=== PATIENT | female | born 1970 | race Hispanic/Latino ===

== ENCOUNTER 2018-01-20 08:37 | Emergency (ER) | payer SELFPAY | END 2018-01-20 09:33 | disposition home or self-care (01) | LOC: SCSER 08:37 | DX: J02.9 Acute pharyngitis, unspecified (principal) | CPT/HCPCS: 87081; 87430; 99283 ==

== ENCOUNTER 2020-01-22 13:33 | Outpatient (CLI) | payer OTHER ==
--- NOTE | 2020-01-22 14:37 | MMO ---
Right Breast MAMMO Unilat Diag DDI RT+ANN. CLINICAL HISTORY: Patient is 49 years old and is seen for additional evaluation requested at current screening. The patient has the following family history of breast cancer: maternal aunt, at age 60. The patient has no personal history of cancer. VIEWS: The views performed were: right craniocaudal spot compression with tomosynthesis; right mediolateral oblique spot compression with tomosynthesis; and right mediolateral with tomosynthesis. FILMS COMPARED: The present examination has been compared to prior imaging studies performed at [facility] on 01/07/2020, at [facility] on 01/25/2019, and at [facility] on 01/13/2018 and 01/22/2020. This study has been interpreted with the assistance of computer-aided detection. MAMMOGRAM FINDINGS: There are scattered fibroglandular densities. There is a new irregular mass measuring 13 x 14 x 16 mm with spiculated margins seen in the middle lower-outer region of the right breast. Spiculated solid mass on ultrasound. IMPRESSION: NEW MASS IN THE RIGHT BREAST IS SUSPICIOUS. AN ULTRASOUND-GUIDED BREAST BIOPSY IS RECOMMENDED. THE RESULTS OF THIS EXAM WERE SENT TO THE PATIENT. ACR BI-RADS Category 4 - Suspicious abnormality - biopsy should be considered MAMMOGRAPHY NOTE: 1. A negative mammogram report should not delay a biopsy if a dominant of clinically suspicious mass is present. 2. Approximately 10% to 15% of breast cancers are not detected by mammography. 3. Adenosis and dense breasts may obscure an underlying neoplasm. Reported by: PIHL ESTES MD Electonically Signed: [id number]
--- NOTE | 2020-01-22 15:27 | ULT ---
RIGHT BREAST ULTRASOUND: HISTORY: Followup to abnormal mammogram. FINDINGS: The right breast is evaluated at approximately the 6:30 o'clock position 2 cm from the nipple where t here is a somewhat spiculated-appearing solid mass which has a very suggestive appearance of malignan cy. This mass measures 0.8 x 1.3 x 1.1 cm. In addition, in the right axilla there is a lymph node w hich measures 0.9 x 2.5 x 1.6 cm which has a somewhat thickened cortex focally and thus is a somewhat suspicious appearance. This should probably be biopsied at the same time that the breast mass is bi opsied. IMPRESSION: 1. Somewhat spiculated-appearing solid mass very suspicious for malignancy. 2. Somewhat enlarged right axillary lymph node with some thickening focally of the cortex which also has a somewhat suspicious appearance. Ultrasound-guided biopsy of this right breast mass and consid eration for biopsy of this right axillary lymph node is suggested for further evaluation. This was discussed with the patient with Latrice who has scheduled a biopsy to be performed. Dr. Edie yusuf's office will be notified. CODE CR
== END 2020-01-22 13:34 | disposition home or self-care (01) ==
LOC: BICMAMMO 13:33
PROVIDERS: ATTEND Family Medicine
DX: N63.13 Unspecified lump in the right breast, lower outer quadrant (principal)
CPT/HCPCS: G0279

== ENCOUNTER → 2020-01-29 | Day surgery (SDC) | payer OTHER ==
--- NOTE | 2020-01-29 14:49 | MMO ---
Right Breast MAMMO Unilat Diag DDI RT. CLINICAL HISTORY: Patient is 49 years old and is seen for breast biopsy. The patient has the following family history of breast cancer: maternal aunt, at age 60. The patient has no personal history of cancer. The patient has a history of right Ultrasound Guided Core Biopsy in January,. VIEWS: The views performed were: right craniocaudal; right mediolateral oblique; and right exaggerated craniocaudal. FILMS COMPARED: The present examination has been compared to prior imaging studies performed at [facility] on 01/07/2020, at [facility] on 01/25/2019, and at [facility] on 01/22/2020. This study has been interpreted with the assistance of computer-aided detection. MAMMOGRAM FINDINGS: There are scattered fibroglandular densities. There is an irregular mass with associated biopsy clip seen in the right breast at 6 o'clock. IMPRESSION: MASS IN THE RIGHT BREAST IS SUSPICIOUS. BIOPSY IS RECOMMENDED. BIOPSY OF THIS LESION HAS BEEN PERFORMED AND PATHOLOGY IS PENDING. THE RESULTS OF THIS EXAM WERE SENT TO THE PATIENT. ACR BI-RADS Category 4 - Suspicious abnormality - biopsy should be considered MAMMOGRAPHY NOTE: 1. A negative mammogram report should not delay a biopsy if a dominant of clinically suspicious mass is present. 2. Approximately 10% to 15% of breast cancers are not detected by mammography. 3. Adenosis and dense breasts may obscure an underlying neoplasm. Reported by: RG MUÑOZ MD Electonically Signed: [id number]
--- NOTE | 2020-01-29 15:40 | ULT ---
ULTRASOUND GUIDED CORE BIOPSY OF RIGHT BREAST MASS: 01/29/20 HISTORY: Suspicious mass within the right breast at the 6:30 position. TECHNIQUE/FINDINGS: Informed consent obtained prior to the procedure. Preprocedural imaging reidentifies an angulated hyp oechoic solid mass at the 6:30 position of the right breast measuring up to approximately 1.2 cm. Skin overlying this lesion was prepped and draped in the normal sterile fashion and anesthetized with 1% buffered lidocaine. With direct sonographic guidance, four 14 gauge core biopsies were obtained of the mass. The obtained material was sent to the pathologist for evaluation. Postprocedural post biopsy clip was placed and proper location confirmed with postprocedural mammography. Patient tolerated the procedure well. IMPRESSION: Successful ultrasound guided core biopsy of right breast mass at the 6:30 position. POS: LIBAN
--- NOTE | 2020-01-29 15:50 | ULT ---
RIGHT AXILLARY LYMPH NODE BIOPSY WITH ULTRASOUND GUIDANCE: DATE: 01/29/2020. HISTORY: A 49-year-old female with a suspicious mass lesion within the right breast at the 6:30 position as we ll as a suspicious lymph node within the right axilla with a thickened cortex. FINDINGS: Informed consent for needle biopsy obtained prior to the procedure. The skin overlying the enlarged axillary node prepped and draped in normal sterile fashion. The skin was anesthetized with 1% buffered Lidocaine. With direct sonographic guidance, a 20-gauge Cynthia needle is advanced into the lesion. Once within the abnormal cortex of the right axillary node, multiple passes were obtained with aspiration. This yielded a good amount of solid material. The patient tolerated the procedure well. IMPRESSION: Ultrasound-guided needle biopsy of the suspicious right axillary lymph node. POS: [facility]
== END ==
LOC: BICULT 12:49
PROVIDERS: ATTEND Family Medicine
PROC: 0H9T3ZX Drainage of Right Breast, Percutaneous Approach, Diagnostic (ICD-10-PCS; principal; 2020-01-29)
PROC: 07B53ZX Excision of Right Axillary Lymphatic, Percutaneous Approach, Diagnostic (ICD-10-PCS; principal; 2020-01-29)
DX: C50.511 Malignant neoplasm of lower-outer quadrant of right female breast (principal); C77.3 Secondary and unspecified malignant neoplasm of axilla and upper limb lymph nodes; Z17.1 Estrogen receptor negative status [ER-]
CPT/HCPCS: 19083; 38505; 88305; 88361

== ENCOUNTER 2020-02-19 13:30 | Outpatient (CLI) | payer OTHER, SELFPAY | END 2020-02-19 13:31 | disposition home or self-care (01) | LOC: ULT 13:30 | PROVIDERS: ATTEND Internal Medicine Hematology & Oncology | DX: Z51.11 Encounter for antineoplastic chemotherapy (principal); C50.111 Malignant neoplasm of central portion of right female breast; Z79.899 Other long term (current) drug therapy; I07.1 Rheumatic tricuspid insufficiency | CPT/HCPCS: 93306 ==

== ENCOUNTER 2020-02-21 08:16 | Day surgery (SDC) | payer OTHER ==
[2020-02-20 09:37] VITALS: BMI 23.8
[2020-02-21] MEDS ORDERED: Acetaminophen 500 MG TAB ONE (09:01)
[2020-02-21] MEDS ORDERED: Ketorolac Tromethamine 30 MG/ML VIAL ONE (09:01)
[2020-02-21] MEDS ORDERED: Bupivacaine 0.25% HCL 30 ML VIAL ONE (09:15)
[2020-02-21] MEDS ORDERED: Lidocaine 1% w/Epinephrine 1:100K 20 ML VIAL ONE (09:15)
[2020-02-21] MEDS ORDERED: Midazolam HCl 2 mg/2 ml Vial ONE (11:19)
[2020-02-21] MEDS ORDERED: Fentanyl 100 MCG/2 ML VIAL ONE (11:19)
[2020-02-21] MEDS ORDERED: PROPOFOL 40 ML ONE (11:19)
[2020-02-21] MEDS ORDERED: Famotidine/PF 20 mg/2ml Vial ONE (11:20)
--- NOTE | 2020-02-21 13:01 | RAD ---
Exam: Chest one view HISTORY:Mediport placement. Comparison: None FINDINGS: Mediport: Left-sided Mediport catheter with the distal tip projecting over the expected region of the superior vena cava. Cardiac silhouette: Normal Aorta: Unremarkable Pulmonary vessels: Normal Costophrenic angles: Clear LUNGS: No masses or consolidation. Pneumothorax: None Osseous abnormalities: None IMPRESSION: 1. No acute cardiopulmonary process. 2. Left-sided Mediport catheter. Distal tip projects over the superior vena cava. No pneumothorax.
--- NOTE | 2020-02-21 13:11 | OP ---
DATE OF PROCEDURE: 02/21/2020 PREOPERATIVE DIAGNOSIS: Right breast cancer. POSTOPERATIVE DIAGNOSIS: Right breast cancer. PROCEDURE PERFORMED: Placement of left subclavian low-profile power compatible MediPort. ANESTHESIA AND ANESTHESIOLOGIST: Total intravenous anesthesia per Rubia Jovel CRNA. INDICATIONS: The patient is a 49-year-old female. She has undergone evaluation of right breast with finding of right breast cancer that is metastatic to lymph node. Neoadjuvant chemotherapy has been recommended. She presents for MediPort placement for chemotherapy administration. DESCRIPTION OF PROCEDURE: Informed consent was obtained. The patient was taken to the operating room where total intravenous anesthesia was obtained with the patient in supine position. Left periclavicular area was prepped with ChloraPrep and draped in sterile fashion. Local anesthetic was infiltrated and a large-gauge needle was passed under the clavicle in the subclavian vein. Guidewire was passed through the needle and fluoroscopically confirmed to enter the superior vena cava. Additional local anesthetic was infiltrated and transverse incision was created based on needle insertion site. A subcutaneous pocket was dissected inferiorly. Introducer dilator was passed over the guidewire under fluoroscopic guidance. The guidewire and dilator were removed, and the catheter was passed through the introducer. The tip of the catheter was positioned at the atriocaval junction and the catheter was trimmed to the appropriate length and secured to the locking hub of the MediPort. The port was then placed in the subcutaneous pocket where it was secured to the pectoral fascia with 2 interrupted sutures of 3-0 Prolene. The incision was then closed in layers with 3-0 and 4-0 Monocryl. Additional local anesthetic was infiltrated. The port was cannulated with a Clemens needle and it aspirated blood freely and was flushed with heparinized saline. Dermabond was placed externally on the skin incision. There were no complications. Blood loss was negligible. The patient tolerated the procedure well and was taken to recovery room in stable condition. FINDINGS: I chose a low profile port secondary to her body habitus. This was placed in the left subclavian vein. The vein was actually relatively difficult to access, but once accessed, the guidewire threaded uneventfully in and procedure was unremarkable. There was essentially no blood loss. There were no complications. The patient tolerated the procedure well, was taken to recovery room in stable condition. Postprocedure chest x-ray is pending at this time. Job ID: [id number]
== END 2020-02-21 13:50 | disposition home or self-care (01) ==
LOC: SDC 08:16
PROVIDERS: ATTEND Specialist
PROC: 02HV33Z Insertion of Infusion Device into Superior Vena Cava, Percutaneous Approach (ICD-10-PCS; principal; 2020-02-21)
PROC: B518ZZA Fluoroscopy of Superior Vena Cava, Guidance (ICD-10-PCS; principal; 2020-02-21)
PROC: 0JH60XZ Insertion of Tunneled Vascular Access Device into Chest Subcutaneous Tissue and Fascia, Open Approach (ICD-10-PCS; principal; 2020-02-21)
DX: C50.511 Malignant neoplasm of lower-outer quadrant of right female breast (principal); Z17.1 Estrogen receptor negative status [ER-]
CPT/HCPCS: 71045; C1788; J0690; J1642; J1885; J2250; J2704; J3010; S0020; S0028

== ENCOUNTER 2020-03-03 08:19 | Day surgery (SDC) | payer OTHER ==
[2020-03-03] MEDS ORDERED: Sodium Chloride 0.9% 20 ML ONE (08:57)
[2020-03-03] MEDS ORDERED: Palonosetron HCl 0.25 MG in Sodium Chloride 0.9% 50 ML IVPB SCH (09:00)
[2020-03-03] MEDS ORDERED: diphenhydrAMINE 50 MG in Sodium Chloride 0.9% 50 ML IVPB PRN (09:01)
[2020-03-03] MEDS ORDERED: CARBOPLATIN IVPB SCH (09:15)
[2020-03-03] MEDS ORDERED: Pertuzumab 840 MG in Sodium Chloride 0.9% 250 ML 250 ML IVPB SCH (09:15)
[2020-03-03] MEDS ORDERED: TRASTUZUMAB IVPB SCH (09:15)
[2020-03-03] MEDS ORDERED: DOCETAXEL IVPB SCH (09:15)
[2020-03-03] MEDS ORDERED: SODIUM CHLORIDE 0.9% IVPB SCH ×3 (09:15)
[2020-03-03] MEDS ORDERED: PEGFILGRASTIM-JMDB 6 MG/0.6 ML SYRINGE SQ SCH (09:15)
[2020-03-03 09:21] VITALS: BP 142/70; TEMP 98
== END 2020-03-03 16:14 | disposition home or self-care (01) ==
LOC: ONC/OP 08:19
PROVIDERS: ATTEND Internal Medicine Hematology & Oncology
DX: Z51.11 Encounter for antineoplastic chemotherapy (principal); C50.111 Malignant neoplasm of central portion of right female breast
CPT/HCPCS: 96375; 96413; 96417; J1100; J1200; J1642; J2469; J7050; J9045; J9171

== ENCOUNTER 2020-03-04 10:03 | Day surgery (SDC) | payer OTHER ==
[~2020-03-04 10:03] MED LIST: PEGFILGRASTIM-JMDB 6 MG/0.6 ML SYRINGE SQ SCH
[2020-03-04 10:41] VITALS: BP 160/76; TEMP 98.6
== END 2020-03-04 10:42 | disposition home or self-care (01) ==
LOC: ONC/OP 10:03
PROVIDERS: ATTEND Internal Medicine Hematology & Oncology
DX: C50.111 Malignant neoplasm of central portion of right female breast (principal)
CPT/HCPCS: 96372; Q5108

== ENCOUNTER 2020-03-24 09:00 | Day surgery (SDC) | payer OTHER ==
[~2020-03-24 09:00] MED LIST changes: +DOCETAXEL IVPB SCH; +Palonosetron HCl 0.25 MG in Sodium Chloride 0.9% 50 ML IVPB SCH; +Pertuzumab 420 MG in Sodium Chloride 0.9% 250 ML 250 ML IVPB SCH; +SODIUM CHLORIDE 0.9% IVPB SCH; +TRASTUZUMAB IVPB SCH
[2020-03-24] MEDS ORDERED: Sodium Chloride 0.9% 20 ML ONE (09:11)
[2020-03-24 09:32] VITALS: BP 140/71; TEMP 98
[2020-03-24] MEDS ORDERED: CARBOPLATIN IVPB SCH (12:15)
[2020-03-24] MEDS ORDERED: SODIUM CHLORIDE 0.9% IVPB SCH (12:15)
== END 2020-03-24 14:31 | disposition home or self-care (01) ==
LOC: ONC/OP 09:00
PROVIDERS: ATTEND Internal Medicine Hematology & Oncology
DX: Z51.11 Encounter for antineoplastic chemotherapy (principal); C50.511 Malignant neoplasm of lower-outer quadrant of right female breast; Z17.1 Estrogen receptor negative status [ER-]
CPT/HCPCS: 96376; 96413; 96417; J1100; J1642; J2469; J7050; J9045; J9171

== ENCOUNTER 2020-03-25 10:10 | Day surgery (SDC) | payer OTHER ==
[~2020-03-25 10:10] MED LIST changes: -DOCETAXEL IVPB SCH; -Palonosetron HCl 0.25 MG in Sodium Chloride 0.9% 50 ML IVPB SCH; -Pertuzumab 420 MG in Sodium Chloride 0.9% 250 ML 250 ML IVPB SCH; -SODIUM CHLORIDE 0.9% IVPB SCH; -TRASTUZUMAB IVPB SCH
[2020-03-25 10:28] VITALS: BP 134/70; TEMP 98
== END 2020-03-25 10:34 | disposition home or self-care (01) ==
LOC: ONC/OP 10:10
PROVIDERS: ATTEND Internal Medicine Hematology & Oncology
DX: C50.111 Malignant neoplasm of central portion of right female breast (principal)
CPT/HCPCS: 96372; Q5108

== ENCOUNTER 2020-04-14 09:05 | Day surgery (SDC) | payer OTHER ==
[~2020-04-14 09:05] MED LIST changes: +CARBOPLATIN IVPB SCH; +DOCETAXEL IVPB SCH; -PEGFILGRASTIM-JMDB 6 MG/0.6 ML SYRINGE SQ SCH; +Palonosetron HCl 0.25 MG in Sodium Chloride 0.9% 50 ML IVPB SCH; +Pertuzumab 420 MG in Sodium Chloride 0.9% 250 ML 250 ML IVPB SCH; +SODIUM CHLORIDE 0.9% IVPB SCH; +Sodium Chloride 0.9% 20 ML ONE; +TRASTUZUMAB IVPB SCH
[2020-04-14 09:29] VITALS: BP 138/73; TEMP 98.1
[2020-04-14] MEDS ORDERED: CARBOplatin 450 MG in Sodium Chloride 0.9% 250 ML 250 ML IVPB SCH (12:00)
== END 2020-04-14 13:18 | disposition home or self-care (01) ==
LOC: ONC/OP 09:05
PROVIDERS: ATTEND Internal Medicine Hematology & Oncology
DX: Z51.11 Encounter for antineoplastic chemotherapy (principal); C50.111 Malignant neoplasm of central portion of right female breast
CPT/HCPCS: 96375; 96413; 96417; J1100; J1642; J2469; J7050; J9045; J9171

== ENCOUNTER → 2020-05-05 | Day surgery (SDC) | payer OTHER ==
[2020-05-05 10:29] VITALS: BP 146/81; TEMP 98.2
== END ==
LOC: ONC/OP 09:49
PROVIDERS: ATTEND Internal Medicine Hematology & Oncology
DX: Z51.12 Encounter for antineoplastic immunotherapy (principal); C50.111 Malignant neoplasm of central portion of right female breast
CPT/HCPCS: 96375; 96413; 96417; J1100; J1642; J2469; J7050; J9045; J9171

== ENCOUNTER 2020-05-06 12:43 | Day surgery (SDC) | payer OTHER ==
[~2020-05-06 12:43] MED LIST changes: -CARBOPLATIN IVPB SCH; -DOCETAXEL IVPB SCH; +PEGFILGRASTIM-JMDB 6 MG/0.6 ML SYRINGE SQ SCH; -Palonosetron HCl 0.25 MG in Sodium Chloride 0.9% 50 ML IVPB SCH; -Pertuzumab 420 MG in Sodium Chloride 0.9% 250 ML 250 ML IVPB SCH; -SODIUM CHLORIDE 0.9% IVPB SCH; -Sodium Chloride 0.9% 20 ML ONE; -TRASTUZUMAB IVPB SCH
[2020-05-06 12:56] VITALS: BP 116/63; TEMP 97.8
== END 2020-05-06 12:58 | disposition home or self-care (01) ==
LOC: ONC/OP 12:43
PROVIDERS: ATTEND Internal Medicine Hematology & Oncology
DX: C50.111 Malignant neoplasm of central portion of right female breast (principal)
CPT/HCPCS: 96372; Q5108

== ENCOUNTER 2020-05-06 13:27 | Outpatient (CLI) | payer OTHER ==
--- NOTE | 2020-05-06 14:28 | MMO ---
Left Breast MAMMO Unilat Diag DDI LT+ANN. CLINICAL HISTORY: Patient is 49 years old and is seen for diagnostic exam. The patient has the following family history of breast cancer: maternal aunt, at age 60. 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 The patient has a history of right Ultrasound Guided Core Biopsy in January,. VIEWS: The views performed were: left craniocaudal with tomosynthesis; left mediolateral oblique with tomosynthesis; and left mediolateral with tomosynthesis. FILMS COMPARED: The present examination has been compared to prior imaging studies performed at [facility] on 01/22/2020, 01/29/2020 and 05/06/2020. This study has been interpreted with the assistance of computer-aided detection. MAMMOGRAM FINDINGS: There are scattered fibroglandular densities. No mammographic or sonograhic abnormality is seen at the site of concern in the left breast. There are no suspicious masses, suspicious calcifications, or new areas of architectural distortion. IMPRESSION: THERE IS NO MAMMOGRAPHIC EVIDENCE OF MALIGNANCY. A ROUTINE FOLLOW-UP MAMMOGRAM IN 1 YEAR IS RECOMMENDED. THE RESULTS OF THIS EXAM WERE SENT TO THE PATIENT. ACR BI-RADS Category 2 - Benign finding MAMMOGRAPHY NOTE: 1. A negative mammogram report should not delay a biopsy if a dominant of clinically suspicious mass is present. 2. Approximately 10% to 15% of breast cancers are not detected by mammography. 3. Adenosis and dense breasts may obscure an underlying neoplasm. Reported by: ISABELA TEJADA MD Electonically Signed: [id number]
--- NOTE | 2020-05-06 14:34 | ULT ---
LEFT BREAST ULTRASOUND: 05/06/20 HISTORY: Discoloration in the left breast at the 7-8 o'clock position. The patient has a history of right breast cancer. FINDINGS: Correlation is made with mammogram same date. Sonographic evaluation of the 7 and 8 o'clock positions of the left breast demonstrates no abnormalit y. IMPRESSION: 1. BIRADS 2: Benign Finding(s) Routine annual screening mammography (for women over age 40). 2. Further evaluation (including biopsy) should be based on clinical findings/suspicion.
== END 2020-05-06 13:28 | disposition home or self-care (01) ==
LOC: BICMAMMO 13:27
PROVIDERS: ATTEND Internal Medicine Hematology & Oncology
DX: R92.8 Other abnormal and inconclusive findings on diagnostic imaging of breast (principal); Z85.3 Personal history of malignant neoplasm of breast
CPT/HCPCS: G0279

== ENCOUNTER 2020-05-26 10:00 | Day surgery (SDC) | payer OTHER ==
[~2020-05-26 10:00] MED LIST changes: +CARBOPLATIN IVPB SCH; +DOCETAXEL IVPB SCH; -PEGFILGRASTIM-JMDB 6 MG/0.6 ML SYRINGE SQ SCH; +Palonosetron HCl 0.25 MG in Sodium Chloride 0.9% 50 ML IVPB SCH; +Pertuzumab 420 MG in Sodium Chloride 0.9% 250 ML 250 ML IVPB SCH; +SODIUM CHLORIDE 0.9% IVPB SCH; +TRASTUZUMAB IVPB SCH
[2020-05-26] MEDS ORDERED: Sodium Chloride 0.9% 20 ML ONE (10:21)
[2020-05-26 12:50] VITALS: BP 160/70; TEMP 97.6
== END 2020-05-26 14:32 | disposition home or self-care (01) ==
LOC: ONC/OP 10:00
PROVIDERS: ATTEND Internal Medicine Hematology & Oncology
DX: Z51.11 Encounter for antineoplastic chemotherapy (principal); C50.111 Malignant neoplasm of central portion of right female breast
CPT/HCPCS: 96375; 96413; 96417; J1100; J1642; J2469; J7050; J9045; J9171

== ENCOUNTER 2020-05-27 13:07 | Day surgery (SDC) | payer OTHER ==
[2020-05-27] MEDS ORDERED: PEGFILGRASTIM-JMDB 6 MG/0.6 ML SYRINGE ONE (13:13)
[2020-05-27 13:26] VITALS: BP 118/56; TEMP 98
[2020-05-27] MEDS ORDERED: PEGFILGRASTIM-JMDB 6 MG/0.6 ML SYRINGE SQ SCH (13:30)
== END 2020-05-27 13:26 | disposition home or self-care (01) ==
LOC: ONC/OP 13:07
PROVIDERS: ATTEND Internal Medicine Hematology & Oncology
DX: C50.111 Malignant neoplasm of central portion of right female breast (principal)
CPT/HCPCS: 96372; Q5108

== ENCOUNTER → 2020-06-16 | Day surgery (SDC) | payer OTHER ==
[~2020-06-16] MED LIST changes: +Sodium Chloride 0.9% 20 ML ONE; +TRASTUZUMAB ANNS IVPB SCH
== END ==
LOC: ONC/OP 09:32
PROVIDERS: ATTEND Internal Medicine Hematology & Oncology
DX: Z51.11 Encounter for antineoplastic chemotherapy (principal); C50.111 Malignant neoplasm of central portion of right female breast
CPT/HCPCS: 96375; 96413; 96417; J1100; J1642; J2469; J7050; J9045; J9171; J9306; Q5117

== ENCOUNTER 2020-06-17 09:12 | Day surgery (SDC) | payer OTHER ==
[~2020-06-17 09:12] MED LIST changes: -CARBOPLATIN IVPB SCH; -DOCETAXEL IVPB SCH; +PEGFILGRASTIM-JMDB 6 MG/0.6 ML SYRINGE SQ SCH; -Palonosetron HCl 0.25 MG in Sodium Chloride 0.9% 50 ML IVPB SCH; -Pertuzumab 420 MG in Sodium Chloride 0.9% 250 ML 250 ML IVPB SCH; -SODIUM CHLORIDE 0.9% IVPB SCH; -Sodium Chloride 0.9% 20 ML ONE; -TRASTUZUMAB ANNS IVPB SCH; -TRASTUZUMAB IVPB SCH
[2020-06-17 09:17] VITALS: BP 141/75
== END 2020-06-17 09:21 | disposition home or self-care (01) ==
LOC: ONC/OP 09:12
PROVIDERS: ATTEND Internal Medicine Hematology & Oncology
DX: C50.111 Malignant neoplasm of central portion of right female breast (principal)
CPT/HCPCS: 96372; Q5108

== ENCOUNTER 2020-07-18 12:40 | Outpatient (CLI) | payer OTHER | END 2020-07-18 12:41 | disposition home or self-care (01) | LOC: ULT 12:40 | PROVIDERS: ATTEND Internal Medicine Hematology & Oncology | DX: Z51.11 Encounter for antineoplastic chemotherapy (principal); C50.111 Malignant neoplasm of central portion of right female breast; Z79.899 Other long term (current) drug therapy | CPT/HCPCS: 93306 ==

== ENCOUNTER 2020-08-27 09:14 | Day surgery (SDC) | payer SELFPAY ==
[~2020-08-27 09:14] MED LIST changes: -PEGFILGRASTIM-JMDB 6 MG/0.6 ML SYRINGE SQ SCH; +Pertuzumab 420 MG in Sodium Chloride 0.9% 250 ML 250 ML IVPB SCH; +SODIUM CHLORIDE 0.9% IVPB SCH; +TRASTUZUMAB IVPB SCH
[2020-08-27 09:35] VITALS: BP 137/80; TEMP 98.7
[2020-08-27] MEDS ORDERED: Sodium Chloride 0.9% 20 ML ONE (09:35)
== END 2020-08-27 11:15 | disposition home or self-care (01) ==
LOC: ONC/OP 09:14
PROVIDERS: ATTEND Internal Medicine Hematology & Oncology
DX: Z51.12 Encounter for antineoplastic immunotherapy (principal); C50.111 Malignant neoplasm of central portion of right female breast
CPT/HCPCS: 96413; 96417; J1642

== ENCOUNTER 2020-09-17 09:11 | Day surgery (SDC) | payer SELFPAY ==
[2020-09-17 09:18] VITALS: BP 142/67; TEMP 97.9
[2020-09-17] MEDS ORDERED: Sodium Chloride 0.9% 20 ML ONE (09:34)
== END 2020-09-17 11:51 | disposition home or self-care (01) ==
LOC: ONC/OP 09:11
PROVIDERS: ATTEND Internal Medicine Hematology & Oncology
DX: Z51.12 Encounter for antineoplastic immunotherapy (principal); C50.111 Malignant neoplasm of central portion of right female breast
CPT/HCPCS: 96413; 96417; J1642

== ENCOUNTER 2020-10-08 09:23 | Day surgery (SDC) | payer SELFPAY ==
[2020-10-08] MEDS ORDERED: Sodium Chloride 0.9% 20 ML ONE (09:28)
[2020-10-08 10:03] VITALS: BP 131/79; TEMP 97.8
== END 2020-10-08 14:53 | disposition home or self-care (01) ==
LOC: ONC/OP 09:23
PROVIDERS: ATTEND Internal Medicine Hematology & Oncology
DX: Z51.12 Encounter for antineoplastic immunotherapy (principal); C50.111 Malignant neoplasm of central portion of right female breast; Z86.718 Personal history of other venous thrombosis and embolism
CPT/HCPCS: 96401; 96413; 96417; J1642

== ENCOUNTER 2020-10-29 09:15 | Day surgery (SDC) | payer SELFPAY ==
[2020-10-29] MEDS ORDERED: Sodium Chloride 0.9% 20 ML ONE (09:43)
[2020-10-29 09:44] VITALS: BP 145/70; TEMP 98.2
== END 2020-10-29 11:33 | disposition home or self-care (01) ==
LOC: ONC/OP 09:15
PROVIDERS: ATTEND Internal Medicine Hematology & Oncology
DX: Z51.12 Encounter for antineoplastic immunotherapy (principal); C50.111 Malignant neoplasm of central portion of right female breast; I82.629 Acute embolism and thrombosis of deep veins of unspecified upper extremity
CPT/HCPCS: 96413; 96417; J1642

== ENCOUNTER 2020-11-19 10:09 | Day surgery (SDC) | payer OTHER, SELFPAY ==
[2020-11-19] MEDS ORDERED: Sodium Chloride 0.9% 20 ML ONE (10:11)
[2020-11-19 10:43] VITALS: BP 131/65; TEMP 98.3
== END 2020-11-19 13:19 | disposition home or self-care (01) ==
LOC: ONC/OP 10:09
PROVIDERS: ATTEND Internal Medicine Hematology & Oncology
DX: Z51.12 Encounter for antineoplastic immunotherapy (principal); C50.111 Malignant neoplasm of central portion of right female breast; Z86.718 Personal history of other venous thrombosis and embolism
CPT/HCPCS: 96413; 96417; J1642

== ENCOUNTER 2020-11-26 12:56 | Outpatient (CLI) | payer OTHER, SELFPAY | END 2020-11-26 12:57 | disposition home or self-care (01) | LOC: ULT 12:56 | PROVIDERS: ATTEND Internal Medicine Hematology & Oncology | DX: Z51.11 Encounter for antineoplastic chemotherapy (principal); C50.111 Malignant neoplasm of central portion of right female breast; I08.1 Rheumatic disorders of both mitral and tricuspid valves; Z79.899 Other long term (current) drug therapy | CPT/HCPCS: 93306 ==

== ENCOUNTER 2020-12-10 09:35 | Day surgery (SDC) | payer OTHER, SELFPAY ==
[2020-12-10] MEDS ORDERED: Sodium Chloride 0.9% 20 ML ONE (09:45)
[2020-12-10 10:36] VITALS: BP 133/64; TEMP 98.3
== END 2020-12-10 13:00 | disposition home or self-care (01) ==
LOC: ONC/OP 09:35
PROVIDERS: ATTEND Internal Medicine Hematology & Oncology
DX: Z51.12 Encounter for antineoplastic immunotherapy (principal); C50.111 Malignant neoplasm of central portion of right female breast; Z86.718 Personal history of other venous thrombosis and embolism
CPT/HCPCS: 96413; 96417; J1642

== ENCOUNTER 2021-01-05 10:23 | Day surgery (SDC) | payer SELFPAY ==
[2021-01-05] MEDS ORDERED: Sodium Chloride 0.9% 20 ML ONE (10:25)
[2021-01-05] MEDS ORDERED: SODIUM CHLORIDE 0.9% IVPB SCH (10:45)
[2021-01-05] MEDS ORDERED: TRASTUZUMAB IVPB SCH (10:45)
[2021-01-05] MEDS ORDERED: Pertuzumab 420 MG in Sodium Chloride 0.9% 250 ML 250 ML IVPB SCH (10:45)
[2021-01-05 10:56] VITALS: BP 131/59; TEMP 97.5
== END 2021-01-05 13:49 | disposition home or self-care (01) ==
LOC: ONC/OP 10:23
PROVIDERS: ATTEND Internal Medicine Hematology & Oncology
DX: Z51.12 Encounter for antineoplastic immunotherapy (principal); C50.111 Malignant neoplasm of central portion of right female breast; Z86.718 Personal history of other venous thrombosis and embolism
CPT/HCPCS: 96413; 96417; J1642

== ENCOUNTER 2021-01-26 09:47 | Day surgery (SDC) | payer SELFPAY ==
[2021-01-26] MEDS ORDERED: Sodium Chloride 0.9% 20 ML ONE (10:03)
[2021-01-26 10:07] VITALS: BP 140/68; TEMP 98
== END 2021-01-26 11:50 | disposition home or self-care (01) ==
LOC: ONC/OP 09:47
PROVIDERS: ATTEND Internal Medicine Hematology & Oncology
DX: Z51.12 Encounter for antineoplastic immunotherapy (principal); C50.111 Malignant neoplasm of central portion of right female breast; Z86.718 Personal history of other venous thrombosis and embolism
CPT/HCPCS: 96413; 96417

== ENCOUNTER 2021-02-23 09:48 | Day surgery (SDC) | payer OTHER, SELFPAY ==
[2021-02-23] MEDS ORDERED: Sodium Chloride 0.9% 20 ML ONE (09:50)
[2021-02-23 10:11] VITALS: BP 136/66; TEMP 98.1
== END 2021-02-23 12:37 | disposition home or self-care (01) ==
LOC: ONC/OP 09:48
PROVIDERS: ATTEND Internal Medicine Hematology & Oncology
DX: Z51.12 Encounter for antineoplastic immunotherapy (principal); C50.111 Malignant neoplasm of central portion of right female breast; Z86.718 Personal history of other venous thrombosis and embolism
CPT/HCPCS: 96413; 96417; J1642

== ENCOUNTER 2021-02-25 13:13 | Outpatient (CLI) | payer OTHER, SELFPAY | END 2021-02-25 13:14 | disposition home or self-care (01) | LOC: ULT 13:13 | PROVIDERS: ATTEND Internal Medicine Hematology & Oncology | DX: Z51.11 Encounter for antineoplastic chemotherapy (principal); C50.111 Malignant neoplasm of central portion of right female breast; I07.1 Rheumatic tricuspid insufficiency; Z79.899 Other long term (current) drug therapy | CPT/HCPCS: 93306 ==

== ENCOUNTER → 2021-04-06 | Day surgery (SDC) | payer OTHER ==
[~2021-04-06] MED LIST changes: +Sodium Chloride 0.9% 20 ML ONE
[2021-04-06 11:05] VITALS: BP 132/67; TEMP 97.9
== END ==
LOC: ONC/OP 10:37
PROVIDERS: ATTEND Internal Medicine Hematology & Oncology
DX: Z51.12 Encounter for antineoplastic immunotherapy (principal); C50.111 Malignant neoplasm of central portion of right female breast; Z86.718 Personal history of other venous thrombosis and embolism
CPT/HCPCS: 96413; 96417; J1642

== ENCOUNTER 2021-04-21 14:05 | Outpatient (CLI) | payer OTHER | END 2021-04-21 14:06 | disposition home or self-care (01) | LOC: BICRAD 14:05 | PROVIDERS: ATTEND Family Medicine | DX: R07.81 Pleurodynia (principal); D64.9 Anemia, unspecified; Z85.3 Personal history of malignant neoplasm of breast | CPT/HCPCS: 71046 ==

== ENCOUNTER 2021-04-27 10:19 | Day surgery (SDC) | payer OTHER ==
[~2021-04-27 10:19] MED LIST changes: -Sodium Chloride 0.9% 20 ML ONE
[2021-04-27] MEDS ORDERED: Sodium Chloride 0.9% 20 ML ONE (10:25)
[2021-04-27 10:41] VITALS: BP 113/55; TEMP 98.1
== END 2021-04-27 12:50 | disposition home or self-care (01) ==
LOC: ONC/OP 10:19
PROVIDERS: ATTEND Internal Medicine Hematology & Oncology
DX: Z51.12 Encounter for antineoplastic immunotherapy (principal); C50.111 Malignant neoplasm of central portion of right female breast; D50.0 Iron deficiency anemia secondary to blood loss (chronic); Z86.718 Personal history of other venous thrombosis and embolism
CPT/HCPCS: 96413; 96417; J1642

== ENCOUNTER 2021-04-29 22:15 | Emergency (ER) | payer OTHER, SELFPAY ==
[2021-04-29 22:52] LABS: #Basophils 0.1 thou/uL (0.0-0.2); #Eosinphils 0.2 thou/uL (0.0-0.7); #Lymphocytes 2.8 thou/uL (1.20-3.40); #Monocytes 0.6 thou/uL (0.11-0.59); #Neutrophils 5.4 thou/uL (1.40-6.50); %Basophils 0.9 % (0.0-1.0); %Eosinophils 2.1 % (0.0-10.0); %Lymphocytes 31.1 % (21.0-51.0); %Monocytes 6.5 % (0.0-10.0); %Neutrophils 59.5 % (42.0-75.0); Hemoglobin 9.2 g/dL (12.0-16.0); Mean Corpuscular HGB CONC 33.1 g/dL (32.0-36.0); Mean Corpuscular Hemoglobin 26.6 pg (27.0-31.0); Mean Corpuscular Volume 80.2 fL (78.0-98.0); Platelet Count 240 thou/uL (130-400); RBC Distribution Width 16.2 % (11.5-14.5); Red Blood Cell (RBC) Count 3.45 mill/uL (4.20-5.40); White Blood Cell (WBC) Count 9.1 thou/uL (4.8-10.8)
[2021-04-29 23:24] LABS: ALT (SGPT) 17 U/L (8-55); AST (SGOT) 23 U/L (5-34); Alkaline Phosphatase 119 U/L (40-110); Anion Gap 15 mmol/L (10-20); BUN (Urea Nitrogen) 24 mg/dL (9.8-20.1); Bilirubin, Total 0.3 mg/dL (0.2-1.2); Calc. Creatinine Clearance 0 mL/min (70-130); Calcium 9.6 mg/dL (7.8-10.44); Carbon Dioxide 24 mmol/L (22-29); Chloride 106 mmol/L (98-107); Globulin 2.9 g/dL (2.4-3.5); Glucose 111 mg/dL (70-105); Lipase 35 U/L (8-78); Potassium 3.7 mmol/L (3.5-5.1); Protein, Total 6.9 g/dL (6.0-8.3); Sodium 141 mmol/L (136-145)
[2021-04-30 00:12] LABS: Bilirubin Negative (Negative); Blood, Urine Negative (Negative); Clarity Clear (Clear); Glucose, Urine (Dipstick) Normal (Negative); Ketone, Urine Negative (Negative); Leukocyte Negative Leu/uL (Negative); Nitrite Negative (Negative); Protein, Urine (Dipstick) Negative (Neg-Trace); Specific Gravity, Urine 1.008 (1.002-1.036); Urobilinogen Normal mg/dL (Less than 2)
[2021-04-30] MEDS ORDERED: Aspirin Chewable 81 MG TAB ONE (00:33)
[2021-04-30] MEDS ORDERED: Nitroglycerin 2% Ointment 1 INCH/1 GM Packet ONE (00:33)
[2021-04-30] MEDS ORDERED: Morphine 4 MG/ML VIAL ONE (00:38)
[2021-04-30] MEDS ORDERED: Iopamidol 370 76% 100 ML VIAL ONE (10:05)
== END 2021-04-30 03:25 | disposition home or self-care (01) ==
LOC: ERS 22:15
DX: R10.11 Right upper quadrant pain (principal)
CPT/HCPCS: 36415; 71045; 71260; 74177; 76705; 80053; 81003; 83690; 84484; 85025; 85379; 87086; 93005; 96374; J2270; Q9967

== ENCOUNTER 2021-05-11 08:14 | Outpatient (CLI) | payer OTHER | END 2021-05-11 08:15 | disposition home or self-care (01) | LOC: BICMAMMO 08:14 | PROVIDERS: ATTEND Internal Medicine Hematology & Oncology | DX: Z08 Encounter for follow-up examination after completed treatment for malignant neoplasm (principal); Z85.3 Personal history of malignant neoplasm of breast | CPT/HCPCS: G0279 ==

== ENCOUNTER 2021-05-15 10:37 | Day surgery (SDC) | payer OTHER ==
[~2021-05-15 10:37] MED LIST changes: +Ferumoxytol (NON ERSD) 510 MG in Sodium Chloride 0.9% 250 ML 150 ML IVPB SCH; -Pertuzumab 420 MG in Sodium Chloride 0.9% 250 ML 250 ML IVPB SCH; -SODIUM CHLORIDE 0.9% IVPB SCH; -TRASTUZUMAB IVPB SCH
[2021-05-15] MEDS ORDERED: Sodium Chloride 0.9% 20 ML ONE (10:48)
[2021-05-15 11:07] VITALS: BP 124/68; TEMP 97.7
== END 2021-05-15 11:54 | disposition home or self-care (01) ==
LOC: ONC/OP 10:37
PROVIDERS: ATTEND Internal Medicine Hematology & Oncology
DX: Z51.11 Encounter for antineoplastic chemotherapy (principal); C50.111 Malignant neoplasm of central portion of right female breast; D50.0 Iron deficiency anemia secondary to blood loss (chronic); Z86.711 Personal history of pulmonary embolism
CPT/HCPCS: 96365; J1642; J7050; Q0138

== ENCOUNTER 2021-05-19 10:09 | Day surgery (SDC) | payer OTHER ==
[~2021-05-19 10:09] MED LIST changes: +Ferumoxytol (ERSD) 510 MG in Sodium Chloride 0.9% 150 ML IVPB SCH; -Ferumoxytol (NON ERSD) 510 MG in Sodium Chloride 0.9% 250 ML 150 ML IVPB SCH; +Pertuzumab 420 MG in Sodium Chloride 0.9% 250 ML 250 ML IVPB SCH; +SODIUM CHLORIDE 0.9% IVPB SCH; +TRASTUZUMAB IVPB SCH
[2021-05-19] MEDS ORDERED: Sodium Chloride 0.9% 20 ML ONE (10:22)
[2021-05-19 10:34] VITALS: BP 160/73
== END 2021-05-19 13:02 | disposition home or self-care (01) ==
LOC: ONC/OP 10:09
PROVIDERS: ATTEND Internal Medicine Hematology & Oncology
DX: Z51.12 Encounter for antineoplastic immunotherapy (principal); C50.111 Malignant neoplasm of central portion of right female breast; D50.0 Iron deficiency anemia secondary to blood loss (chronic); Z86.718 Personal history of other venous thrombosis and embolism
CPT/HCPCS: 96367; 96413; 96417; J1642; J3490; Q0139

== ENCOUNTER 2021-11-13 10:00 | Emergency (ER) | payer SELFPAY ==
[2021-11-13 10:39] LABS: #Eosinphils 0.1 thou/uL (0.0-0.7); #Lymphocytes 2.1 thou/uL (1.20-3.40); #Monocytes 0.4 thou/uL (0.11-0.59); #Neutrophils 4.5 thou/uL (1.40-6.50); %Basophils 0.4 % (0.0-1.0); %Eosinophils 1.8 % (0.0-10.0); %Lymphocytes 29.3 % (21.0-51.0); %Neutrophils 63.6 % (42.0-75.0); Hemoglobin 14.1 g/dL (12.0-16.0); Mean Corpuscular HGB CONC 33.6 g/dL (32.0-36.0); Mean Corpuscular Hemoglobin 32.1 pg (27.0-31.0); Mean Corpuscular Volume 95.6 fL (78.0-98.0); Mean Platelet Volume 7.5 fL (7.4-10.4); Platelet Count 221 thou/uL (130-400); RBC Distribution Width 11.1 % (11.5-14.5); Red Blood Cell (RBC) Count 4.38 mill/uL (4.20-5.40)
[2021-11-13 10:52] LABS: ALT (SGPT) 30 U/L (8-55); AST (SGOT) 32 U/L (5-34); Albumin 4.1 g/dL (3.5-5.0); Alkaline Phosphatase 134 U/L (40-110); Anion Gap 10 mmol/L (10-20); BUN (Urea Nitrogen) 16 mg/dL (9.8-20.1); Bilirubin, Total 0.3 mg/dL (0.2-1.2); Calc. Creatinine Clearance 0 mL/min (70-130); Calcium 9.7 mg/dL (7.8-10.44); Carbon Dioxide 28 mmol/L (22-29); Chloride 106 mmol/L (98-107); Glucose 133 mg/dL (70-105); Lipase 28 U/L (8-78); Protein, Total 7.1 g/dL (6.0-8.3); Sodium 140 mmol/L (136-145)
== END 2021-11-13 14:03 | disposition home or self-care (01) ==
LOC: ERS 10:00
DX: M79.602 Pain in left arm (principal); R20.2 Paresthesia of skin
CPT/HCPCS: 36415; 71045; 80053; 83690; 84484; 85025; 93005

== ENCOUNTER 2024-06-12 13:39 | Outpatient (CLI) | payer OTHER | END 2024-06-12 13:40 | disposition home or self-care (01) | LOC: BICMAMMO 13:39 | PROVIDERS: ATTEND Specialist | DX: Z08 Encounter for follow-up examination after completed treatment for malignant neoplasm (principal); Z85.3 Personal history of malignant neoplasm of breast | CPT/HCPCS: G0279 ==